=== PATIENT | male | born 1980 | race Asian ===

== ENCOUNTER 2020-05-25 19:01 | Emergency (ER) | payer BC ==
[~2020-05-25] VITALS: Ht 170.2 cm; Wt 100.0 kg
[~2020-05-25 19:01] MED LIST: LIDOcaine 1% W/epiNEPHrine 1:100,000 20ml vial ONE
[2020-05-25 19:04] VITALS: BP 157/105
[2020-05-25] MEDS ORDERED: TETanus/Pertussis (Acell)/Diphther VAC/PF (Tdap-Adult) 0.5ml syringe IMVAC ONE (19:55)
[2020-05-25] MEDS ORDERED: LIDOcaine 1% W/epiNEPHrine 1:200,000 10ml vial IJ ONE (19:55)
[2020-05-25] MEDS ORDERED: LIDOcaine 1% W/epiNEPHrine 1:200,000 10ml vial IJ STA (20:00)
[2020-05-25] MEDS ORDERED: LIDOcaine 1% w/epiNEPHrine 1:200,000 30ml vial IJ ONE (20:05)
== END 2020-05-25 22:04 | disposition home or self-care (01) ==
LOC: ER 19:03
DX: S61.214A Laceration without foreign body of right ring finger without damage to nail, initial encounter (principal); W45.8XXA Other foreign body or object entering through skin, initial encounter; Y93.89 Activity, other specified; Y92.89 Other specified places as the place of occurrence of the external cause; Y99.8 Other external cause status
CPT/HCPCS: 12001; 64450; 90471; 90715; 99283; 99284